=== PATIENT | male | born 1970 | race Caucasian/White ===

== ENCOUNTER 2018-08-05 18:20 | Day surgery (SDC) | payer BC ==
[2018-08-05] MEDS ORDERED: Fluorouracil 100 MG, Enoxaparin Sodium 25 MG, EPINEPHrine 0.3 MG in Ophthalmic Irrigati... IVPB SCH (18:31)
[2018-08-05] MEDS ORDERED: Cyclopentolate 1% Opth Drop 2 ML BOT FS SCH (18:31)
[2018-08-05] MEDS ORDERED: Cyclopentolate 1% Opth Drop 2 ML BOT ONE (18:39)
[2018-08-05] MEDS ORDERED: Phenylephrine 2.5% Ophth Soln 5 ML BOT ONE (18:39)
[2018-08-05] MEDS ORDERED: Fentanyl 100 MCG/2 ML VIAL ONE (19:06)
[2018-08-05] MEDS ORDERED: Midazolam HCl 2 mg/2 ml Vial ONE (19:06)
--- NOTE | 2018-08-06 07:41 | OP ---
DATE OF PROCEDURE: 08/05/2018 POSTOPERATIVE DIAGNOSES: Rhegmatogenous retinal detachment, right eye; lattice degeneration, left ey e. PROCEDURES: Complex retinal detachment repair, right eye. Laser barricade, left eye. SURGEON : Javier Garcia M.D. ANESTHESIA: General endotracheal anesthesia. PROCEDURE IN DETAIL: Patient was identified in the preoperative holding area. Appropriate informed consent for the planned surgical procedure on both eyes was obtained. Patient was transported to the operative suite, where appropriate cardiopulmonary monitoring established. General endotracheal ane sthesia was initiated. A 360-laser plate barricade was placed in the left eye using indirect laser d elivery device. The patient was prepped and draped in the usual sterile manner for ophthalmic surger y on the right eye. Lid speculum was placed in the right eye. The 25-gauge trocars placed in conjun ctiva and sclera supratemporally, inferotemporally, and supranasally. Infusion line was placed infer otemporally. Light pipe and vitreous cutter were inserted into the eye. Core vitrectomy was perform ed. Special attention was turned to the peripheral retina. This was carefully dissected using wide field viewing system with special attention to the giant retinal tear superior temporally. Perfluoro ctane was infused on top of the retina, flattening the retina completely. Laser was placed 360 with special attention to the giant retinal tear. Posterior drain retinotomy was created and complete air fluid exchange was performed with careful removal of subretinal fluid. No posterior slippage of the posterior retina was identified. Ten minutes were allowed for fluid to drain posteriorly. Posterio r pole was washed with balanced salt solution and silicone oil was infused into the eye. Sclerotomie s were sutured closed with 7-0 Vicryl suture. Conjunctiva was closed with 6-0 plain gut suture. Ret robulbar Kenalog and subconjunctival Ancef were placed. Atropine and antibiotic ointment placed, and the eye was patched and shielded. The patient was awakened and taken to the postoperative recovery unit in good condition having suffered no immediate perioperative period. The patient was advised to position left side down and follow up tomorrow with Dr. Garcia.
== END 2018-08-05 22:58 | disposition home or self-care (01) ==
LOC: SDC 18:20
PROVIDERS: ATTEND Ophthalmology Retina Specialist
PROC: 08T53ZZ Resection of Left Vitreous, Percutaneous Approach (ICD-10-PCS; principal; 2018-08-05)
DX: H33.001 Unspecified retinal detachment with retinal break, right eye (principal); Z79.899 Other long term (current) drug therapy
CPT/HCPCS: C1814; J0131; J0171; J1650; J2250; J3010; J9190

== ENCOUNTER 2018-11-11 05:41 | Day surgery (SDC) | payer BC ==
[2018-11-10 08:37] VITALS: BMI 31.8
[2018-11-11] MEDS ORDERED: Fluorouracil 100 MG, Enoxaparin Sodium 25 MG, EPINEPHrine 0.3 MG in Ophthalmic Irrigati... IVPB SCH (06:00)
[2018-11-11] MEDS ORDERED: Cyclopentolate 1% Opth Drop 2 ML BOT ONE (06:09)
[2018-11-11] MEDS ORDERED: Phenylephrine 2.5% Ophth Soln 5 ML BOT ONE (06:09)
[2018-11-11] MEDS ORDERED: Midazolam HCl 2 mg/2 ml Vial ONE (06:47)
[2018-11-11] MEDS ORDERED: Fentanyl 100 MCG/2 ML VIAL ONE (06:47)
[2018-11-11] MEDS ORDERED: Bupivacaine 0.75% 10 ML AMP ONE (13:21)
[2018-11-11] MEDS ORDERED: Triamcinolone 40 MG/ML VIAL ONE (13:21)
[2018-11-11] MEDS ORDERED: Lidocaine 4% PF 5 ML AMP ONE (13:21)
[2018-11-11] MEDS ORDERED: Lidocaine 1% PF 5 ML VIAL ONE (13:21)
[2018-11-11] MEDS ORDERED: Maxitrol 0.1% Opth Oint 3.5 GM TUBE ONE (13:21)
[2018-11-11] MEDS ORDERED: PROPOFOL 200 MG/20 ML VIAL ONE (13:21)
[2018-11-11] MEDS ORDERED: CEFAZOLIN 1 GM VIAL ONE (13:21)
--- NOTE | 2018-11-11 14:56 | OP ---
DATE OF PROCEDURE: 11/11/2018 PREOPERATIVE DIAGNOSIS: Vitreous opacification, right eye. POSTOPERATIVE DIAGNOSIS: Vitreous opacification, right eye. PROCEDURES PERFORMED: Pars plana vitrectomy and membrane peel, right eye. ANESTHESIA: Local with monitored anesthesia care. DESCRIPTION OF PROCEDURE: The patient was identified in the preoperative holding area. Appropriate informed consent for the planned surgical procedure on the right eye had been obtained. The patient was transported to the operative suite, where appropriate cardiopulmonary monitoring was established. Local anesthesia was obtained using retrobulbar modified Van Lint lid block using 50:50 mixture of 4% lidocaine and 0.75% bupivacaine. The patient was prepped and draped in the usual sterile manner for ophthalmic surgery on the right eye. Lid speculum was placed in the right eye. A 25-gauge trocar was placed through the conjunctiva and sclera superotemporally, inferotemporally, and supranasally. Infusion line was placed inferotemporally. Light pipe vitreous cutter was inserted into the eye. Core vitrectomy was performed. Viscous fluid was removed from the eye using a viscous fluid removal device. Oil was removed and no holes, tears, or retinal elevation were noted. Sclerotomy was suture closed with 7-0 Vicryl suture. Conjunctiva was closed with 6-0 plain gut suture. Retrobulbar Kenalog and subconjunctival Ancef were placed. Atropine antibiotic ointment was placed, and the eye was patched and shielded. The patient was taken to the postoperative recovery unit in good condition, having suffered no immediate perioperative complications. The patient was instructed to keep the patch and shield on, avoid lifting or bending, and followup in the morning with Dr. Garcia. Job ID: [id number]
== END 2018-11-11 08:40 | disposition home or self-care (01) ==
LOC: SDC 05:41
PROVIDERS: ATTEND Ophthalmology Retina Specialist
PROC: 08T43ZZ Resection of Right Vitreous, Percutaneous Approach (ICD-10-PCS; principal; 2018-11-11)
DX: H43.311 Vitreous membranes and strands, right eye (principal); Z79.899 Other long term (current) drug therapy
CPT/HCPCS: J0171; J0690; J1650; J2001; J2250; J2704; J3010; J3301; J3490; J9190